=== PATIENT | female | born 1940 ===

== ENCOUNTER 2019-05-27 14:38 | Outpatient (CLI) | payer MEDICARE ==
[2019-05-27 15:01] LABS: Basophils % (Auto) 0.5 % (0.0-1.8); Eosinophils # (Auto) 0.1 K/mm3 (0.0-0.4); Eosinophils % (Auto) 1.1 % (0.0-4.3); Hematocrit 32.7 % (30.3-42.9); Hemoglobin 11.6 gm/dl (10.1-14.3); Lymphocytes # (Auto) 1.6 K/mm3 (1.2-5.4); Lymphocytes % (Auto) 22.4 % (13.4-35.0); Mean Corpuscular HGB Conc 35 % (30-34); Mean Corpuscular Volume 98 fl (79-97); Monocytes # (Auto) 0.5 K/mm3 (0.0-0.8); Monocytes % (Auto) 6.8 % (0.0-7.3); Platelet Count 142 K/mm3 (140-440); Red Blood Count 3.32 M/mm3 (3.65-5.03); Red Cell Distribution Width 13.8 % (13.2-15.2)
[2019-05-27 15:21] LABS: Alanine Aminotransferase 9 units/L (7-56); Albumin 4.4 g/dL (3.9-5); BUN/Creatinine Ratio 23; Blood Urea Nitrogen 18 mg/dL (7-17); Calcium 9.6 mg/dL (8.4-10.2); Hemolysis Index 1
[2019-05-31 12:45] LABS: Vitamin D, 25-OH, D2 <4 ng/mL
== END 2019-05-27 14:39 | disposition home or self-care (01) ==
LOC: LAB 14:38
PROVIDERS: ATTEND Specialist
DX: G62.9 Polyneuropathy, unspecified (principal); F02.81 Dementia in other diseases classified elsewhere, unspecified severity, with behavioral disturbance; G95.9 Disease of spinal cord, unspecified
CPT/HCPCS: 36415; 80053; 82306; 82550; 82607; 83921; 84443; 85025; 86592